=== PATIENT | female | born 1985 | race Caucasian/White ===

== ENCOUNTER → 2017-12-04 | Outpatient (CLI) | payer BC ==
[2017-12-04 09:58] LABS: Free Thyroxine 0.84 ng/dL (0.70-1.60); Thyroid Stimulating Hormone 2.211 uIU/mL (0.360-4.800)
== END | disposition home or self-care (01) ==
LOC: LAB EV 09:26 → LAB SHORT 09:26
PROVIDERS: Physician Assistant Surgical
DX: R00.0 Tachycardia, unspecified (principal)
CPT/HCPCS: 84439; 84443; 84481